=== PATIENT | female | born 1965 | race Two or more races ===

== ENCOUNTER → 2018-02-09 | Emergency (ER) | payer MEDICAID | END | disposition left against medical advice (07) | LOC: ER 19:41 | DX: M79.604 Pain in right leg (principal); Z53.21 Procedure and treatment not carried out due to patient leaving prior to being seen by health care provider ==

== ENCOUNTER 2019-02-12 18:38 | Emergency (ER) | payer MEDICAID ==
[2019-02-12 21:41] VITALS: BP 151/85
[2019-02-12] MEDS ORDERED: methylPREDNISolone SOD SUCC 125 MG/2 ML VL IM ONE (22:00)
[2019-02-12] MEDS ORDERED: IPRATROPIUM BROM 0.5 MG/2.5ML INH SOL NEB ONE (22:00)
[2019-02-12] MEDS ORDERED: ALBUTEROL SULF 2.5 MG/0.5ML(0.5%) NEB SOLN NEB ONE (22:00)
== END 2019-02-12 23:11 | disposition home or self-care (01) ==
LOC: ER 18:38
DX: J45.901 Unspecified asthma with (acute) exacerbation (principal); Z86.39 Personal history of other endocrine, nutritional and metabolic disease
CPT/HCPCS: 71046; 94644; 96372; 99283; J2930; J7611; J7644

== ENCOUNTER 2019-07-06 11:04 | Emergency (ER) | payer MEDICAID ==
[~2019-07-06] VITALS: Ht 152.4 cm; Wt 61.2 kg
[2019-07-06 11:44] LABS: Basophils # (auto) 0 uL; Basophils % (auto) 0.3 % (0.0-2.0); Eosinophils # (auto) 0.1 uL; Eosinophils % (auto) 1.4 % (0.0-7.0); Hematocrit 45.1 % (36.0-46.0); Hemoglobin 15.1 g/dL (12.2-16.2); Lymphocytes # (auto) 2.1 uL; Lymphocytes % (auto) 20.8 % (10.0-50.0); Mean Corpuscular Hemoglobin 29.2 pg (28.0-32.0); Mean Corpuscular Hgb Conc. 33.5 g/dL (32.0-36.0); Monocytes # (auto) 0.9 uL; Monocytes % (auto) 8.3 % (0.0-12.0); Neutrophils # (auto) 7.1 uL; Neutrophils % (auto) 69.2 % (37.0-80.0); Platelet Count (auto) 258 10^3/uL (140-450); Red Blood Cells 5.18 10^6/uL (4.0-5.20); Red Cell Distribution Width 13.3 % (11.8-14.3); White Blood Cell 10.3 10^3/uL (4.4-10.8)
[2019-07-06 12:02] LABS: Alanine Aminotransferase 31 U/L (13-56); Albumin 3.4 g/dL (3.4-5.0); Anion Gap 5 (5-15); Aspartate Aminotransferase 29 U/L (15-37); BUN/Creatinine Ratio 11.1; Blood Urea Nitrogen 6 mg/dL (7-18); Carbon Dioxide 29 mmol/L (21-32); Chloride 106 mmol/L (98-107); GFR African American 151 mL/min; GFR Non-African American 125 mL/min; Glucose 98 mg/dL (74-106); Potassium 3.7 mmol/L (3.5-5.1); Sodium 140 mmol/L (136-145)
[2019-07-06 12:07] LABS: Alkaline Phosphatase 67 U/L (45-117); Bilirubin, Total 0.7 mg/dL (0.2-1.0); Total Protein 8.1 g/dL (6.4-8.2)
[2019-07-06 14:09] VITALS: BP 97/68
== END 2019-07-06 14:32 | disposition home or self-care (01) ==
LOC: ER 11:04
DX: J45.909 Unspecified asthma, uncomplicated (principal); K40.90 Unilateral inguinal hernia, without obstruction or gangrene, not specified as recurrent; E07.9 Disorder of thyroid, unspecified
CPT/HCPCS: 36415; 71046; 74176; 80053; 84484; 85025; 93005

== ENCOUNTER 2023-07-27 12:43 | Emergency (ER) | payer MEDICAID ==
[2023-07-27 12:43] VITALS: PULSE 89; TEMP 98.1
[2023-07-27] MEDS ORDERED: IPRATROPIUM BROM 0.5 MG/2.5ML INH SOL NEB ONE (15:00)
[2023-07-27] MEDS ORDERED: methylPREDNISolone SOD SUCC 125 MG/2 ML VL IM ONE (15:00)
[2023-07-27] MEDS ORDERED: ALBUTEROL MEDNEB 2.5 mg/3ml NEB NEB ONE (15:00)
[2023-07-27] MEDS ORDERED: cefTRIAXone SOD 1,000 MG VL IM ONE (15:00)
[2023-07-27 16:24] VITALS: BP 122/68; RESP 18; O2SAT 98
[2023-07-27] MEDS ORDERED: PRED20TA2 PO (16:26)
[2023-07-27] MEDS ORDERED: AZIT500T66 PO (16:26)
== END 2023-07-27 16:19 | disposition home or self-care (01) ==
LOC: ER 12:43
DX: J45.901 Unspecified asthma with (acute) exacerbation (principal); J03.90 Acute tonsillitis, unspecified
CPT/HCPCS: 71046; 94640; 96372; 99284; J0696; J2930; J7644